=== PATIENT | female | born 1955 | race Caucasian/White ===

== ENCOUNTER 2021-07-11 14:19 | Emergency (ER) | payer MEDICARE, MEDICAID ==
[~2021-07-11] VITALS: Ht 154.9 cm; Wt 90.9 kg
[~2021-07-11 14:19] MED LIST: METF-960 PO; NAPR375T PO; TRAZ150 PO
[2021-07-11] MEDS ORDERED: DULA1.5P SQ (14:39)
[2021-07-11] MEDS ORDERED: INSLAN SQ (14:39)
[2021-07-11] MEDS ORDERED: INSNOV SQ (14:39)
[2021-07-11 17:46] VITALS: BP 140/83
== END 2021-07-11 17:51 | disposition home or self-care (01) ==
LOC: EMS 14:56
DX: M25.561 Pain in right knee (principal); E11.9 Type 2 diabetes mellitus without complications; Z79.4 Long term (current) use of insulin; Z79.899 Other long term (current) drug therapy
CPT/HCPCS: 93971; 99284; 73562-TC; Z7502